=== PATIENT | female | born 1960 | race Caucasian/White ===

== ENCOUNTER → 2016-06-30 | Outpatient (CLI) | payer BC ==
--- NOTE | 2016-06-30 10:26 | MM ---
Reason for exam: additional evaluation requested from prior study. Last mammogram was performed 1 year ago. History: Patient has history of high-risk lesion on a previous biopsy at age 52. Benign US biopsy breast VAD LT of the left breast, June 20, 2014. Benign left breast needle localization of both breasts, June 15, 2012. High risk left mammotome panel of the left breast, June 06, 2012. Physical Findings: Nurse Summary: 1cm nodule in the left breast at 7 o'clock (nurse kp). MG 3D Diag Mammo W/Cad [facility] Bilateral CC and MLO view(s) were taken. Prior study comparison: May 06, 2016, left breast US breast LT. June 20, 2014, left breast MG diagnostic mammo LT wo CAD. May 28, 2013, CAD bilateral diagnostic mammogram. There are scattered fibroglandular densities. Finding #1: Stable architectural distortion in the left breast consistent with known lumpectomy. Finding #2: There are typically benign vascular, round calcifications in both breasts. Previous mammotome biopsy in the left breast. There is a chronic nodularity bilaterally. These results were verbally communicated with the patient and result sheet given to the patient on 06/30/16. ASSESSMENT: Benign, BI-RAD 2 RECOMMENDATION: Routine screening mammogram of both breasts in 1 year.
--- NOTE | 2016-06-30 10:30 | USB ---
Reason for exam: follow-up at short interval from prior study. History: Patient has history of high-risk lesion on a previous biopsy at age 52. Benign US biopsy breast VAD LT of the left breast, June 20, 2014. Benign left breast needle localization of both breasts, June 15, 2012. High risk left mammotome panel of the left breast, June 06, 2012. US Breast LT Left breast ultrasound including all four quadrants, the retroareolar region and axilla demonstrates a 0.3 x 0.2 x 0.2cm round, cystic, stable lesion at 7 o'clock, a 0.6 x 0.3 x 0.2cm oval, cystic, septated, stable lesion at 7 o'clock and a 0.5 x 0.4 x 0.3cm oval, mixed, new lesion at 10 o'clock. These results were verbally communicated with the patient and result sheet given to the patient on 06/30/16. ASSESSMENT: Benign, BI-RAD 2 RECOMMENDATION: Routine screening mammogram of both breasts in 1 year.
== END | disposition home or self-care (01) ==
LOC: RADMAMWWP 08:53
PROVIDERS: ATTEND Family Medicine
DX: R92.8 Other abnormal and inconclusive findings on diagnostic imaging of breast (principal)
CPT/HCPCS: 76641; G0204; G0279

== ENCOUNTER → 2017-07-06 | Outpatient (CLI) | payer BC ==
--- NOTE | 2017-07-08 08:46 | MM ---
Reason for exam: screening (asymptomatic). Last mammogram was performed 1 year ago. History: Patient has history of high-risk lesion on a previous biopsy at age 52. Benign US biopsy breast VAD LT of the left breast, June 20, 2014. Benign left breast needle localization of both breasts, June 15, 2012. High risk left mammotome panel of the left breast, June 06, 2012. Physical Findings: A clinical breast exam by your physician is recommended on an annual basis and results should be correlated with mammographic findings. MG 3D Screening Mammo W/Cad Bilateral CC and MLO view(s) were taken. Prior study comparison: June 30, 2016, bilateral MG 3d diag mammo w/cad [facility]. June 26, 2015, bilateral MG 3d diag mammo w/cad [facility]. There are scattered fibroglandular densities. Previous mammotome biopsy in the left breast. There is chronic nodularity in the left breast. Stable post excisional and distortion 12 o'clock left breast. No significant changes when compared with prior studies. ASSESSMENT: Benign, BI-RAD 2 RECOMMENDATION: Routine screening mammogram of both breasts in 1 year.
== END | disposition home or self-care (01) ==
LOC: RADMAMWWP 13:07
PROVIDERS: ATTEND Obstetrics & Gynecology
DX: Z12.31 Encounter for screening mammogram for malignant neoplasm of breast (principal)
CPT/HCPCS: 77063; 77067

== ENCOUNTER → 2018-07-24 | Outpatient (CLI) | payer BC ==
--- NOTE | 2018-07-25 07:51 | MM ---
Reason for exam: screening (asymptomatic). Last mammogram was performed 1 year and 1 month ago. History: Patient has history of high-risk lesion on a previous biopsy at age 52. Benign US biopsy breast VAD LT of the left breast, June 20, 2014. Benign left breast needle localization of both breasts, June 15, 2012. High risk left mammotome panel of the left breast, June 06, 2012. Physical Findings: A clinical breast exam by your physician is recommended on an annual basis and results should be correlated with mammographic findings. MG 3D Screening Mammo W/Cad Bilateral CC and MLO view(s) were taken. Prior study comparison: July 06, 2017, bilateral MG 3d screening mammo w/cad. June 30, 2016, bilateral MG 3d diag mammo w/cad [facility]. The breast tissue is heterogeneously dense. This may lower the sensitivity of mammography. Stable benign calcifications. There is no discrete abnormality. No significant changes when compared with prior studies. ASSESSMENT: Benign, BI-RAD 2 RECOMMENDATION: Routine screening mammogram of both breasts in 1 year.
== END | disposition home or self-care (01) ==
LOC: RADMAMWWP 09:49
PROVIDERS: ATTEND Family Medicine
DX: Z12.31 Encounter for screening mammogram for malignant neoplasm of breast (principal)
CPT/HCPCS: 77063; 77067

== ENCOUNTER → 2019-12-26 | Outpatient (CLI) | payer BC ==
--- NOTE | 2019-12-27 08:47 | MM ---
Reason for exam: additional evaluation requested from abnormal screening. Last mammogram was performed 1 month ago. History: Patient has history of high-risk lesion on a previous biopsy at age 52. Benign US biopsy breast VAD LT of the left breast, June 20, 2014. Benign left breast needle localization of both breasts, June 15, 2012. High risk left mammotome panel of the left breast, June 06, 2012. Physical Findings: Nurse did not find any significant physical abnormalities on exam. MG 3D Work Up W/Cad [facility] Bilateral LM view(s) were taken. Spot compression CCRL and spot compression MLO view(s) were taken of the right breast. CC with magnification and LM with magnification view(s) were taken of the left breast. Prior study comparison: December 06, 2019, bilateral MG 3d screening mammo w/cad. July 24, 2018, bilateral MG 3d screening mammo w/cad. There are scattered fibroglandular densities. The lateral asymmetric density does not clearly persist on the right. 6 month follow up recommended. Heterogeneous, course, possible dystrophic calcifications have developed at the previous 11 o'clock biopsy site. Biopsy recommended. These results were verbally communicated with the patient and result sheet given to the patient on 12/26/19. ASSESSMENT: Suspicious, BI-RAD 4 RECOMMENDATION: Stereotactic core biopsy of the left breast. Called Dr. Johnson's office with mammographic findings and has scheduled an appointment for the patient for 01/07/20 at 1:[address] Pozo. PRELIMINARY REPORT CALLED AND FAXED TO DR. POZO ON 12/27/19.
== END | disposition home or self-care (01) ==
LOC: RADMAMWWP 13:44
PROVIDERS: ATTEND Family Medicine
DX: R92.8 Other abnormal and inconclusive findings on diagnostic imaging of breast (principal)
CPT/HCPCS: 77062; 77066

== ENCOUNTER → 2020-01-28 | Day surgery (SDC) | payer BC ==
[2020-01-28 12:25] VITALS: RESP 16
[2020-01-28 14:05] VITALS: BP 133/79; PULSE 75; TEMP 97.9
--- NOTE | 2020-01-28 14:55 | MM ---
EXAMINATION TYPE: MG stereo VAD BX LT DATE OF EXAM: 01/28/2020 COMPARISON: Prior mammogram December 26, 2019 and older mammograms. CLINICAL HISTORY: Abnormal mammogram. TECHNIQUE: Stereotactic guided core biopsy of left breast. FINDINGS: The procedure of stereotactic guided core biopsy was explained to the patient. Benefits, alternatives, and risks were discussed. An informed consent was then obtained. The shortness pathway for biopsy was chosen. Shortness pathway was cranial approach. I performed the localization, then performed the remainder of the procedure. Overlying skin is cleansed with ChloraPrep. Lidocaine was used as anesthetic into the skin and deeper tissue. Lidocaine with epinephrine is used as anesthetic into the deeper tissue during sampling. A vacuum assisted biopsy gun was used to obtain multiple core samples. The patient tolerated the procedure well without any immediate complication. The patient was kept in the radiology department for short stay after the procedure and then discharged home in stable condition. Targeted calcifications are identified in specimen mammogram. Post biopsy mammogram shows the clip to appear in satisfactory position relative to the targeted area of concern on the preprocedure images. Some residual calcifications in prior biopsy clip are noted, new clip is along the posterior superior margin of the group of residual calcifications. IMPRESSION: SUCCESSFUL, UNCOMPLICATED STEREOTACTIC GUIDED CORE BIOPSY OF AREA OF CONCERN IN THE LEFT BREAST, FULL PATHOLOGY RESULTS TO FOLLOW. Low index of suspicion noted at time of procedure. Pathology Results: Benign LESION OF LEFT BREAST, NEEDLE CORE BIOPSIES: Fat necrosis and organized hemorrhage with foci of mildly hemosiderin laden macrophages in a background of fibrocystic spectrum changes. Recommendation Follow up mammogram of the left breast in 6 months. ANTOINETTE
== END ==
LOC: RADMAMWWP 12:01
PROVIDERS: ATTEND Surgery
DX: N64.1 Fat necrosis of breast (principal); R92.8 Other abnormal and inconclusive findings on diagnostic imaging of breast; N64.59 Other signs and symptoms in breast; Z88.5 Allergy status to narcotic agent
CPT/HCPCS: 88305; 19081; A4648; J2001

== ENCOUNTER → 2020-11-06 | Outpatient (CLI) | payer BC ==
--- NOTE | 2020-11-06 11:54 | MM ---
Reason for exam: follow-up at short interval from prior study. Last mammogram was performed 10 months ago. History: Patient has history of high-risk lesion on a previous biopsy at age 52. Benign MG stereo VAD BX LT of the left breast, January 28, 2020. Benign US biopsy breast VAD LT of the left breast, June 20, 2014. Benign left breast needle localization of both breasts, June 15, 2012. High risk left mammotome panel of the left breast, June 06, 2012. Physical Findings: Nurse did not find any significant physical abnormalities on exam. MG 3D Diag Mammo W/Cad LT CC and MLO view(s) were taken of the left breast. Prior study comparison: December 26, 2019, bilateral MG 3d work up w/cad [facility]. July 24, 2018, bilateral MG 3d screening mammo w/cad. There are scattered fibroglandular densities. Post biopsy change and biopsy clip left breast. These results were verbally communicated with the patient and result sheet given to the patient on 11/06/20. ASSESSMENT: Benign, BI-RAD 2 RECOMMENDATION: Follow-up diagnostic mammogram of both breasts in 2 months. Back on schedule for December 2020.
== END | disposition home or self-care (01) ==
LOC: RADMAMWWP 11:10
PROVIDERS: ATTEND Family Medicine
DX: N64.89 Other specified disorders of breast (principal)
CPT/HCPCS: 77061; 77065

== ENCOUNTER → 2021-01-15 | Outpatient (CLI) | payer BC ==
--- NOTE | 2021-01-16 10:35 | MM ---
Reason for exam: follow-up at short interval from prior study. Last mammogram was performed 2 months ago. History: Patient has history of high-risk lesion on a previous biopsy at age 52. Benign MG stereo VAD BX LT of the left breast, January 28, 2020. Benign US biopsy breast VAD LT of the left breast, June 20, 2014. Benign left breast needle localization of both breasts, June 15, 2012. High risk left mammotome panel of the left breast, June 06, 2012. Physical Findings: Nurse did not find any significant physical abnormalities on exam. MG 3D Diag Mammo W/Cad [facility] Bilateral CC and MLO view(s) were taken. Prior study comparison: November 06, 2020, left breast MG 3d diag mammo w/cad LT. December 06, 2019, bilateral MG 3d screening mammo w/cad. July 24, 2018, bilateral MG 3d screening mammo w/cad. The breast tissue is heterogeneously dense. This may lower the sensitivity of mammography. Finding: There are coarse, grouped/clustered calcifications in the left breast, previously biopsied, stable. Previous mammotome biopsy in the left breast x 2. No significant changes in finding since November 06, 2020, December 06, 2019, and July 24, 2018. These results were verbally communicated with the patient and result sheet given to the patient on 01/15/21. ASSESSMENT: Benign, BI-RAD 2 RECOMMENDATION: Routine screening mammogram of both breasts in 1 year.
== END | disposition home or self-care (01) ==
LOC: RADMAMWWP 14:56
PROVIDERS: ATTEND Family Medicine
DX: R92.1 Mammographic calcification found on diagnostic imaging of breast (principal)

== ENCOUNTER → 2022-02-03 | Outpatient (CLI) | payer BC ==
--- NOTE | 2022-02-04 20:07 | MM ---
Reason for Exam: Screening (asymptomatic). Last screening mammogram was performed 12 month(s) ago. Patient History: Menarche at age 11. First Full-Term at age 17. Hysterectomy at age 46. Postmenopausal. 01/28/2020, Benign Core Biopsy on the left side. 06/20/2014, Benign Core Biopsy on the left side. 06/15/2012, Bilateral Benign Excisional Biopsy. 06/06/2012, High risk Core Biopsy on the left side. Risk Values: Ann 5 year model risk: 1.7%. NCI Lifetime model risk: 7.5%. Prior Study Comparison: 12/26/2019 Bilateral Diagnostic Mammogram, [facility]. 11/06/2020 Left Diagnostic Mammogram, [facility]. 01/15/2021 Bilateral Diagnostic Mammogram, [facility]. Tissue Density: There are scattered fibroglandular densities. Findings: Analyzed By CAD. Post excisional changes left breast with microclip and fat necrosis calcifications. Benign bilateral vascular calcifications are noted. Nodular asymmetric density subareolar right MLO view appears more defined especially when compared to older priors. Possibly lateral in position on the CC view. Further evaluation recommended. Overall Assessment: Incomplete: need additional imaging evaluation, BI-RAD 0 Management: Special View Mammogram of the right breast. To include spot 3-D CC, 3-D CC rolled medial, spot radiography MLO, and 3-D MLO views. Targeted right breast ultrasound if any persisting abnormality. [facility] will attempt to contact patient to return for supplemental views and ultrasound if indicated. Electronically signed and approved by: Logan Connolly D.O. Radiologis
== END | disposition home or self-care (01) ==
LOC: RADMAMWWP 07:31
PROVIDERS: ATTEND Family Medicine
DX: Z12.31 Encounter for screening mammogram for malignant neoplasm of breast (principal); Z78.0 Asymptomatic menopausal state; Z98.890 Other specified postprocedural states
CPT/HCPCS: 77063; 77067

== ENCOUNTER → 2022-02-10 | Outpatient (CLI) | payer BC ==
--- NOTE | 2022-02-10 10:28 | MM ---
Reason for Exam: Additional evaluation requested from abnormal screening. Last screening mammogram was performed less than 1 month ago. Patient History: Menarche at age 11. First Full-Term at age 17. Hysterectomy at age 46. Postmenopausal. 01/28/2020, Benign Core Biopsy on the left side. 06/20/2014, Benign Core Biopsy on the left side. 06/15/2012, Bilateral Benign Excisional Biopsy. 06/06/2012, High risk Core Biopsy on the left side. Risk Values: Ann 5 year model risk: 1.7%. NCI Lifetime model risk: 7.5%. Tissue Density: Right: The breast tissue is heterogeneously dense. This may lower the sensitivity of mammography. Findings: Analyzed By CAD. No distinct new lesion persisting anterior aspect right breast at area of concern on recent screening mammogram. Overall Assessment: Negative, BI-RAD 1 Management: Screening Mammogram of both breasts in 1 year. Return to routine follow-up. Results were given to the patient verbally at the time of exam. Electronically signed and approved by: Jaxon May M.D.
== END | disposition home or self-care (01) ==
LOC: RADMAMWWP 09:52
PROVIDERS: ATTEND Family Medicine
DX: R92.8 Other abnormal and inconclusive findings on diagnostic imaging of breast (principal); Z78.0 Asymptomatic menopausal state
CPT/HCPCS: 77061; 77065

== ENCOUNTER → 2023-05-27 | Outpatient (CLI) | payer BC ==
--- NOTE | 2023-05-27 10:31 | CA ---
Exercise Stress Test Report Name: Kellie Duvall Exam Date: 05/27/2023 09:36 Exam Location: [place] Stress Ht (in): Wt (lb): BSA: Ordering Phys: Patrick Bo MD Referring Phys: Errol Barlow Technologist: GEE SCANLON Age: 63 Gender: F : 1960 Procedure CPT: Indications: Z82.49 FAMILY HX OF ISCHEM HEART DIS AND OTH DIS O ICD-10 Codes: Patient History: CP, PALP, HTN, DM, CHOL, FAMILY HX, TOB, Medications: METOPROLOL, AMLODIPINE, METFORMIN Meds past 24 hrs: Pretest Chest Pain: STRESS TEST Arash Protocol Exercise Duration (min:sec): 08:[address] Depressions (mm): Angina Score: Feliz Score: Resting HR (bpm): 69 Peak HR (bpm): 132 Resting BP (mmHg): 164 / 73 Peak BP (mmHg): 213 / 96 MPHR: 156 Target HR: 133 % MPHR: 85 METS: 9.4 Total Dose: Peak Dose: Atropine: Double Product: 81788 BP Response: Stress Termination: Reached target heart rate Stress Symptoms: No chest pain or symptoms Stress Summary: ECG ANALYSIS Resting ECG: Normal sinus rhythm normal axis normal intervals Stress ECG: Patient exercised on Arash protocol for 8 minutes achieving 85% of predicted maximal heart rate without chest pain there was [address] segment depression in inferolateral leads CONCLUSIONS Good exercise tolerance Abnormal stress test by EKG criteria Dr. Amarjit Mckenzie MD (Electronically Signed) Final Date: 27 May 2023 10:31
== END | disposition home or self-care (01) ==
LOC: RADNMMAIN 09:04
PROVIDERS: ATTEND Family Medicine
DX: R94.39 Abnormal result of other cardiovascular function study (principal); I10 Essential (primary) hypertension; E11.9 Type 2 diabetes mellitus without complications; E78.00 Pure hypercholesterolemia, unspecified; R00.2 Palpitations; Z82.49 Family history of ischemic heart disease and other diseases of the circulatory system
CPT/HCPCS: 93017

== ENCOUNTER → 2023-05-31 | Outpatient (CLI) | payer BC ==
--- NOTE | 2023-05-31 13:42 | MM ---
Reason for Exam: Screening (asymptomatic). Last mammogram was performed 1 year(s) and 4 month(s) ago. Patient History: Menarche at age 11. First Full-Term at age 17. Hysterectomy at age 46. Postmenopausal. 01/28/2020, Benign Core Biopsy on the left side. 06/20/2014, Benign Core Biopsy on the left side. 06/15/2012, Bilateral Benign Excisional Biopsy. 06/06/2012, High risk Core Biopsy on the left side. Risk Values: Ann 5 year model risk: 1.7%. NCI Lifetime model risk: 7.0%. Prior Study Comparison: 01/15/2021 Bilateral Diagnostic Mammogram, [facility]. 02/03/2022 Bilateral MG 3D screening mammo w/cad, [facility]. 02/10/2022 Right MG 3D work up w/cad RT, [facility]. Tissue Density: The breast tissue is heterogeneously dense. This may lower the sensitivity of mammography. Findings: Analyzed By CAD. Left breast biopsy clip. Benign appearing consultations bilaterally. Area of asymmetry on prior appears stable. No new asymmetries visualized. There is no suspicious group of microcalcifications or new suspicious mass. Overall Assessment: Benign, BI-RAD 2 Management: Screening Mammogram of both breasts in [address] [facility] will attempt to contact patient to return for supplemental views and ultrasound if indicated. Patient should continue monthly self-breast exams. A clinical breast exam by your physician is recommended on an annual basis. This exam should not preclude additional follow-up of suspicious palpable abnormalities. Note on Ann scores and lifetime risk: 1. A Ann score greater than 3% is considered moderate risk. If this is the case, consider specialist referral to assess eligibility for a risk reducing agent. 2. If overall lifetime risk for the development of breast cancer is 20% or higher, the patient may qualify for future screening with alternating mammogram and breast MRI. Electronically signed and approved by: Fran Schwartz DO
== END | disposition home or self-care (01) ==
LOC: RADMAMWWP 10:55
PROVIDERS: ATTEND Family Medicine
DX: Z12.31 Encounter for screening mammogram for malignant neoplasm of breast (principal); Z78.0 Asymptomatic menopausal state
CPT/HCPCS: 77067

== ENCOUNTER → 2024-06-19 | Outpatient (CLI) | payer MEDICARE ==
--- NOTE | 2024-06-19 14:27 | MM ---
Reason for Exam: Screening (asymptomatic). Last mammogram was performed 1 year(s) and 1 month(s) ago. Patient History: Menarche at age 11. First Full-Term at age 17. Hysterectomy at age 46. Postmenopausal. 01/28/2020, Benign Core Biopsy on the left side. 06/20/2014, Benign Core Biopsy on the left side. 06/15/2012, Bilateral Benign Excisional Biopsy. 06/06/2012, High risk Core Biopsy on the left side. Risk Values: Ann 5 year model risk: 1.8%. NCI Lifetime model risk: 6.8%. Prior Study Comparison: 02/03/2022 Bilateral MG 3D screening mammo w/cad, [facility]. 02/10/2022 Right MG 3D work up w/cad RT, [facility]. 05/31/2023 Bilateral MG screening mammo w CAD, [facility]. Tissue Density: There are scattered areas of fibroglandular density. Findings: Analyzed By CAD. Benign appearing vascular calcification bilaterally is redemonstrated. Mammotome biopsy clip that group benign-appearing round calcifications in the left breast is again seen. Persistent scar in the left breast superiorly near this level. There is no suspicious new group of microcalcifications or new suspicious mass in either breast. Overall Assessment: Benign, BI-RAD 2 Management: Screening Mammogram of both breasts in 1 year. . Patient should continue monthly self-breast exams. A clinical breast exam by your physician is recommended on an annual basis. This exam should not preclude additional follow-up of suspicious palpable abnormalities. Note on Ann scores and lifetime risk: 1. A Ann score greater than 3% is considered moderate risk. If this is the case, consider specialist referral to assess eligibility for a risk reducing agent. 2. If overall lifetime risk for the development of breast cancer is 20% or higher, the patient may qualify for future screening with alternating mammogram and breast MRI. [facility], , 06/19/2024 2:25 PM. Electronically signed and approved by: Jaxon May M.D.
== END | disposition home or self-care (01) ==
LOC: RADMAMWWP 13:57
PROVIDERS: ATTEND Family Medicine
DX: Z12.31 Encounter for screening mammogram for malignant neoplasm of breast (principal); R92.323 Mammographic fibroglandular density, bilateral breasts; R92.1 Mammographic calcification found on diagnostic imaging of breast; Z78.0 Asymptomatic menopausal state
CPT/HCPCS: 77063; 77067